=== PATIENT | male | born 1990 | race Caucasian/White ===

== ENCOUNTER 2018-04-29 13:10 | Inpatient (IN) | payer BC ==
[2018-04-29] MEDS ORDERED: oxyCODONE 5 MG Tab PO PRN (13:29)
[2018-04-29] MEDS ORDERED: Temazepam 15 MG Cap PO PRN (13:29)
[2018-04-29] MEDS ORDERED: Acetaminophen 325 MG Tab PO PRN (13:29)
[2018-04-29] MEDS ORDERED: Ondansetron 4 MG Tab.DIS PO PRN (13:29)
[2018-04-29] MEDS ORDERED: Sodium Chloride 0.9% 10 ML Syringe FLUSH PRN (13:29)
[2018-04-29] MEDS ORDERED: Sodium Chloride 0.9% 2.5 ML Syringe FLUSH PRN (13:29)
[2018-04-29] MEDS ORDERED: Docusate Sodium 100 MG Cap PO PRN (13:29)
[2018-04-29] MEDS ORDERED: Sodium Chloride 0.9% 1,000 ML IV SCH (13:30)
--- NOTE | 2018-04-29 13:41 | PCM.HP ---
H&P History of Present Illness - General Date of Service: 04/29/18 Admit Problem/Dx: Admission Diagnosis/Problem Admission Diagnosis/Problem Orbital cellulitis Source of Information: Patient History Limitations: Reports: No Limitations - History of Present Illness Initial Comments - Free Text/Narative: The patient is an otherwise healthy 27-year-old gentleman who had presented to his word processing operator, Dr. Huynh, at [facility] due to infection in his right eye. The patient says that for 4 days he has had what he thought was a stye in his upper eyelid and he had been on medication for this and the cellulitis continued to worsen. The patient has denied any fever or chills. He essentially has no pain at this time. His word processing operator and recommended patient be admitted for broad-spectrum, aggressive antibiotics and further testing to help exclude orbital cellulitis and abscess. The patient also had been on aggressive outpatient oral antibiotics and he has continued to worsen. The patient is otherwise healthy and does not take any medications normally. He has no past medical history. The patient has denied any fever or chills. Onset of Symptoms: Reports: Gradual Duration of Symptoms: Reports: Day(s): Location: Reports: Face Quality: Reports: Ache Improves with: Reports: None Worsens with: Reports: None Associated Symptoms: Reports: No Other Symptoms - Related Data Allergies/Adverse Reactions: Allergies Allergy/AdvReac Type Severity Reaction Status Date / Time No Known Allergies Allergy Verified 04/29/18 13:46 Home Medications: Home Meds . [No Known Home Meds] 04/29/18 [History] Past Medical History - Past Health History Medical/Surgical History: Denies Medical/Surgical History Social & Family History - Tobacco Use Smoking Status *Q: Never Smoker - Alcohol Use Alcohol Use History: No - Living Situation & Occupation Living situation: Reports: Occupation: Employed H&P Review of Systems - Review of Systems: Review Of Systems: See Below General: Reports: No Symptoms HEENT: Reports: Eye Pain, Sinus Congestion, Visual Changes Pulmonary: Reports: No Symptoms Cardiovascular: Reports: No Symptoms Gastrointestinal: Reports: No Symptoms Genitourinary: Reports: No Symptoms Musculoskeletal: Reports: No Symptoms Skin: Reports: No Symptoms Psychiatric: Reports: No Symptoms Neurological: Reports: No Symptoms Hematologic/Lymphatic: Reports: No Symptoms Immunologic: Reports: No Symptoms Exam - Exam Exam: See Below - Exam Quality Assessment: No: Supplemental Oxygen General: Alert, Oriented, Cooperative HEENT: Hearing Intact, Mucosa Moist & [place], Other (The patient's right upper eyelid is inflamed, able to open, conjunctivae inflamed, cornea clear). No: Conjunctiva Clear, EACs Clear Neck: Supple, Trachea Midline Lungs: Clear to Auscultation, Normal Respiratory Effort Cardiovascular: Regular Rate, Regular Rhythm, Normal S1, Normal S2 GI/Abdominal Exam: Normal Bowel Sounds, Soft, Non-Tender, No Distention (Male) Exam: Deferred Rectal (Males) Exam: Deferred Back Exam: Normal Inspection, Full Range of Motion Extremities: Normal Inspection, Normal Range of Motion, No Pedal Edema, Normal Capillary Refill Skin: Warm, Dry, Intact Neurological: Cranial Nerves Intact Neuro Extensive - Mental Status: Alert, Oriented x3 Psychiatric: Alert, Normal Affect, Normal Mood - Problem List (1) Preseptal cellulitis of right upper eyelid SNOMED Code(s): 884605177 ICD Code: L03.213 - PERIORBITAL CELLULITIS Status: Acute Priority: High Current Visit: Yes Problem List Initiated/Reviewed/Updated: Yes Orders Last 24hrs: Active Orders 24 hr Category Date Time Status Patient Status [ADT] Routine ADT 04/29/18 13:30 Ordered Ambulate [RC] PER UNIT ROUTINE Care 04/29/18 13:33 Ordered Oxygen Therapy [RC] PRN Care 04/29/18 13:30 Ordered Up ad Kelli [RC] ASDIRECTED Care 04/29/18 13:29 Ordered VTE/DVT Education [RC] PER UNIT ROUTINE Care 04/29/18 13:30 Ordered Vital Signs [RC] Q4H Care 04/29/18 13:30 Ordered Regular Diet [DIET] Diet 04/29/18 Dinner Ordered Face Neck Orbit w wo Cont [MR] Routine Exams 04/29/18 13:29 Ordered C-REACTIVE PROTEIN [CHEM] Stat Lab 04/29/18 13:29 Ordered CBC WITH AUTO DIFF [HEME] Stat Lab 04/29/18 13:29 Ordered COMPREHENSIVE METABOLIC PN,CMP [CHEM] Stat Lab 04/29/18 13:29 Ordered CULTURE BLOOD [BC] Stat Lab 04/29/18 13:39 Ordered CULTURE BLOOD [BC] Stat Lab 04/29/18 13:39 Ordered SEDIMENTATION RATE AUTO [HEME] Stat Lab 04/29/18 13:29 Ordered Acetaminophen [Tylenol] Med 04/29/18 13:29 Ordered 650 mg PO Q4H PRN Docusate Sodium [Colace] Med 04/29/18 13:29 Ordered 100 mg PO BID PRN Ondansetron [Zofran ODT] Med 04/29/18 13:29 Ordered 4 mg PO Q6H PRN Sodium Chloride 0.9% @ 125 MLS/HR (1000ml) Med 04/29/18 13:30 Ordered Sodium Chloride 0.9% [Normal Saline] 1,000 ml IV ASDIRECTED Sodium Chloride 0.9% [Saline Flush] Med 04/29/18 13:29 Ordered 10 ml FLUSH ASDIRECTED PRN Sodium Chloride 0.9% [Saline Flush] Med 04/29/18 13:29 Ordered 2.5 ml FLUSH ASDIRECTED PRN Temazepam [Restoril] Med 04/29/18 13:29 Ordered 15 mg PO BEDTIME PRN cefTRIAXone [Rocephin] 1 gm Med 04/29/18 13:30 Ordered Sodium Chloride 0.9% [Normal Saline] 50 ml IV Q12H oxyCODONE Med 04/29/18 13:29 Ordered 5 mg PO Q4H PRN Blood Culture x2 Reflex Set [OM.PC] Stat Oth 04/29/18 13:29 Ordered Peripheral IV Insertion Adult [OM.PC] Routine Oth 04/29/18 13:29 Ordered Resuscitation Status Routine Resus Stat 04/29/18 13:29 Ordered Assessment/Plan Comment:: The patient is an otherwise healthy 27-year-old gentleman who was referred from his word processing operator, Dr. Huynh, and was directly admitted as an inpatient. The patient will be kept on aggressive IV antibiotics consisting of vancomycin, pharmacy to dose, Rocephin as recommended with 1 g IV every 12 hours. Blood cultures have also been ordered. I've also ordered an MRI of the patient's face and orbits with and without contrast to exclude intraocular involvement. I have advised the patient as well as Dr. Huynh that if there had been any concern for interocular abscess and would consider the patient to be appropriate for transfer to tertiary care center. The patient also will be kept on IV normal saline at 125 mL per hour and repeat laboratory testings have been ordered. I' ve ordered a CBC, CMP along with a sedimentation rate and a CRP. The patient has been encouraged to ambulate. He is in otherwise good health and ambulation should be appropriate for DVT prophylaxis.
[2018-04-29] MEDS: cefTRIAXone 1 GM in Sodium Chloride 0.9% 50 ML IV SCH (14:32)
[2018-04-29 14:57] LABS: CHLORIDE,CL 103 mmol/L (98-107); SODIUM,NA 141 mmol/L (136-148)
[2018-04-29] MEDS ORDERED: Gadobenate Dimeglumine 529 MG/ML 20 ML SDV IVPUSH STA (19:08)
--- NOTE | 2018-04-29 20:49 | MR ---
Indication: Orbital cellulitis. Technique: Noncontrast sagittal T1, axial FLAIR, T2, diffusion, post contrast T1 weighted sequences are provided. Supplemental high resolution axial/coronal STIR and T1 post contrast Fat saturated images through the orbits are provided. No comparisons. Findings: The ventricles, sulci and gyri are normal size, shape and contour for age. The midline structures are centrally located with no evidence of shift. There are no suspicious intra or extra-axial fluid collections. No region of restricted diffusion or suspicious regions of abnormal parenchymal enhancement. Expected flow voids in the cavernous carotids and basilar artery. The globes bilaterally are within normal limits. No suspicious abnormal signal within the visualized optic nerves. Infundibulum and optic chiasm are midline and within normal limits. There is fat stranding and enhancement in the preseptal right orbital soft tissues as well as involvement of the lateral right lacrimal gland. Similar changes extend along the right face. No focal peripherally enhancing fluid collections are demonstrated. No convincing evidence of suspicious enhancement seen within the postseptal soft tissues the right orbit. No convincing evidence of suspicious masses within the intraconal space. Impression: 1. Findings compatible with right preseptal orbital cellulitis with involvement of the right lacrimal gland and soft tissues of the visualized right upper face. Dictated by Raymundo Vila MD @ Apr 30 2018 9:21AM Signed by Dr. Raymundo Vila @ Apr 30 2018 9:25AM
[2018-04-30] MEDS: cefTRIAXone 1 GM in Sodium Chloride 0.9% 50 ML IV SCH ×2 (01:47→13:45)
[2018-04-30 06:17] LABS: CHLORIDE,CL 106 mmol/L (98-107); SODIUM,NA 142 mmol/L (136-148)
--- NOTE | 2018-04-30 07:49 | PCM.PN ---
- General Info Date of Service: 04/30/18 Admission Dx/Problem (Free Text): Admission Diagnosis/Problem Admission Diagnosis/Problem Orbital cellulitis Subjective Update: The patient is an otherwise healthy 27-year-old gentleman who had been admitted directly from internal medicine physician office. This is secondary to preseptal orbital cellulitis and the patient had an MRI with contrast yesterday. Patient today says that he is doing much better. His been able to open his eye. His vision has improved. No fever and chills overnight. Overall, no complaints. Functional Status: Reports: Pain Controlled, Tolerating Diet - Review of Systems General: Reports: No Symptoms HEENT: Reports: Eye Pain Pulmonary: Reports: No Symptoms Cardiovascular: Reports: No Symptoms Gastrointestinal: Reports: No Symptoms Genitourinary: Reports: No Symptoms Musculoskeletal: Reports: No Symptoms Skin: Reports: No Symptoms Neurological: Reports: No Symptoms Psychiatric: Reports: No Symptoms - Patient Data Vitals - Most Recent: Last Vital Signs Temp 36.6 C 04/30/18 04:00 Pulse 85 04/30/18 04:00 Resp 16 04/30/18 04:00 BP 121/55 L 04/30/18 04:00 Pulse Ox 95 04/30/18 04:00 Weight - Most Recent: 76.476 kg I&O - Last 24 Hours: Intake & Output 04/29/18 04/30/18 04/30/18 22:59 06:59 14:59 Intake Total 100 500 Output Total 0 350 Balance 100 150 Lab Results Last 24 Hours: Laboratory Results - last 24 hr 04/29/18 04/29/18 04/30/18 Range/Units 13:52 13:52 05:37 WBC 10.59 9.06 (4.0-11.0) K/uL RBC 5.23 5.01 (4.50-5.90) M/uL Hgb 16.3 15.3 (13.0-17.0) g/dL Hct 45.6 44.3 (38.0-50.0) % MCV 87.2 88.4 (80.0-98.0) fL MCH 31.2 30.5 (27.0-32.0) pg MCHC 35.7 34.5 (31.0-37.0) g/dL RDW Std Deviation 40.0 40.0 (28.0-62.0) fl RDW Coeff of [place] 13 13 (11.0-15.0) % Plt Count 230 215 (150-400) K/uL MPV 10.00 10.00 (7.40-12.00) fL Neut % (Auto) 75.8 64.5 (48.0-80.0) % Lymph % (Auto) 14.9 L 23.5 (16.0-40.0) % [place] % (Auto) 8.6 10.4 (0.0-15.0) % Eos % (Auto) 0.6 1.4 (0.0-7.0) % Baso % (Auto) 0.1 0.2 (0.0-1.5) % Neut # (Auto) 8.0 H 5.8 H (1.4-5.7) K/uL Lymph # (Auto) 1.6 2.1 (0.6-2.4) K/uL [place] # (Auto) 0.9 H 0.9 H (0.0-0.8) K/uL Eos # (Auto) 0.1 0.1 (0.0-0.7) K/uL Baso # (Auto) 0.0 0.0 (0.0-0.1) K/uL Nucleated RBC % 0.0 0.0 /100WBC Nucleated RBCs # 0 0 K/uL ESR 6 (0-14) mm/hr Sodium 141 (136-148) mmol/L Potassium 3.9 (3.5-5.1) mmol/L Chloride 103 (98-107) mmol/L Carbon Dioxide 26.7 (21.0-32.0) mmol/L BUN 16 (7.0-18.0) mg/dL Creatinine 1.1 (0.8-1.3) mg/dL Est Cr Clr Drug Dosing 105.53 mL/min Estimated GFR (MDRD) > 60.0 ml/min Glucose 86 (74-106) mg/dL Calcium 9.5 (8.5-10.1) mg/dL Total Bilirubin 0.8 (0.2-1.0) mg/dL AST 17 (15-37) IU/L ALT 18 (14-63) IU/L Alkaline Phosphatase 118 H (46-116) U/L C-Reactive Protein 3.10 H (0.00-0.90) mg/dL Total Protein 8.2 (6.4-8.2) g/dL Albumin 4.0 (3.4-5.0) g/dL Globulin 4.2 H (2.6-4.0) g/dL Albumin/Globulin Ratio 1.0 (0.9-1.6) 04/30/18 Range/Units 05:37 WBC (4.0-11.0) K/uL RBC (4.50-5.90) M/uL Hgb (13.0-17.0) g/dL Hct (38.0-50.0) % MCV (80.0-98.0) fL MCH (27.0-32.0) pg MCHC (31.0-37.0) g/dL RDW Std Deviation (28.0-62.0) fl RDW Coeff of [place] (11.0-15.0) % Plt Count (150-400) K/uL MPV (7.40-12.00) fL Neut % (Auto) (48.0-80.0) % Lymph % (Auto) (16.0-40.0) % [place] % (Auto) (0.0-15.0) % Eos % (Auto) (0.0-7.0) % Baso % (Auto) (0.0-1.5) % Neut # (Auto) (1.4-5.7) K/uL Lymph # (Auto) (0.6-2.4) K/uL [place] # (Auto) (0.0-0.8) K/uL Eos # (Auto) (0.0-0.7) K/uL Baso # (Auto) (0.0-0.1) K/uL Nucleated RBC % /100WBC Nucleated RBCs # K/uL ESR (0-14) mm/hr Sodium 142 (136-148) mmol/L Potassium 4.3 (3.5-5.1) mmol/L Chloride 106 (98-107) mmol/L Carbon Dioxide 29.6 (21.0-32.0) mmol/L BUN 19 H (7.0-18.0) mg/dL Creatinine 1.0 (0.8-1.3) mg/dL Est Cr Clr Drug Dosing 116.09 mL/min Estimated GFR (MDRD) > 60.0 ml/min Glucose 88 (74-106) mg/dL Calcium 9.4 (8.5-10.1) mg/dL Total Bilirubin (0.2-1.0) mg/dL AST (15-37) IU/L ALT (14-63) IU/L Alkaline Phosphatase (46-116) U/L C-Reactive Protein (0.00-0.90) mg/dL Total Protein (6.4-8.2) g/dL Albumin (3.4-5.0) g/dL Globulin (2.6-4.0) g/dL Albumin/Globulin Ratio (0.9-1.6) Med Orders - Current: Current Medications Acetaminophen (Tylenol) 650 mg PO Q4H PRN PRN Reason: Pain (Mild 1-3)/fever Docusate Sodium (Colace) 100 mg PO BID PRN PRN Reason: Constipation Ceftriaxone Sodium 1 gm/ (Sodium Chloride) 50 mls @ 100 mls/hr IV Q12H [facility] Last Admin: 04/30/18 01:47 Dose: 100 mls/hr Vancomycin HCl 1.25 gm/ Sodium (Chloride) 250 mls @ 166.667 mls/hr IV Q8H [facility] Last Admin: 04/30/18 00:06 Dose: 166.667 mls/hr Ondansetron HCl (Zofran Odt) 4 mg PO Q6H PRN PRN Reason: nausea, able to take PO Oxycodone HCl (Oxycodone) 5 mg PO Q4H PRN PRN Reason: Pain (moderate 4-6) Sodium Chloride (Saline Flush) 10 ml FLUSH ASDIRECTED PRN PRN Reason: Keep Vein Open Sodium Chloride (Saline Flush) 2.5 ml FLUSH ASDIRECTED PRN PRN Reason: Keep Vein Open Temazepam (Restoril) 15 mg PO BEDTIME PRN PRN Reason: Sleep Discontinued Medications Gadobenate Dimeglumine (Multihance) 20 ml IVPUSH ONETIME STA Stop: 04/29/18 19:09 Last Admin: 04/29/18 19:09 Dose: 15 ml Sodium Chloride (Normal Saline) 1,000 mls @ 125 mls/hr IV ASDIRECTED [facility] Last Admin: 04/29/18 14:32 Dose: 125 mls/hr Vancomycin HCl (Pharmacy To Dose - Vancomycin) 1 dose .XX ONETIME ONE Stop: 04/29/18 15:49 Last Admin: 04/29/18 16:34 Dose: Not Given - Exam Quality Assessment: No: Supplemental Oxygen General: Alert, Oriented, Cooperative, No Acute Distress HEENT: Other (Erythema right upper lid less today with serous drainage). No: Scleral Icterus Neck: Supple, Trachea Midline Lungs: Clear to Auscultation, Normal Respiratory Effort Cardiovascular: Regular Rate, Regular Rhythm GI/Abdominal Exam: Normal Bowel Sounds, Soft, Non-Tender, No Distention (Male) Exam: Deferred Back Exam: Normal Inspection, Full Range of Motion Extremities: Normal Inspection, Normal Range of Motion, Non-Tender, No Pedal Edema Skin: Warm, Dry, Intact Wound/Incisions: Healing Well Neurological: No New Focal Deficit Psy/Mental Status: Alert, Normal Affect, Normal Mood - Problem List & Annotations (1) Preseptal cellulitis of right upper eyelid SNOMED Code(s): 678781830 Code(s): L03.213 - PERIORBITAL CELLULITIS Status: Acute Priority: High Current Visit: Yes Annotation/Comment:: Improved - Problem List Review Problem List Initiated/Reviewed/Updated: Yes - My Orders Last 24 Hours: My Active Orders 04/29/18 13:29 Up ad Kelli [RC] ASDIRECTED Acetaminophen [Tylenol] 650 mg PO Q4H PRN Docusate Sodium [Colace] 100 mg PO BID PRN Ondansetron [Zofran ODT] 4 mg PO Q6H PRN Sodium Chloride 0.9% [Saline Flush] 10 ml FLUSH ASDIRECTED PRN Sodium Chloride 0.9% [Saline Flush] 2.5 ml FLUSH ASDIRECTED PRN Temazepam [Restoril] 15 mg PO BEDTIME PRN oxyCODONE 5 mg PO Q4H PRN Blood Culture x2 Reflex Set [OM.PC] Stat Peripheral IV Insertion Adult [OM.PC] Routine Resuscitation Status Routine 04/29/18 13:30 Patient Status [ADT] Routine Oxygen Therapy [RC] PRN VTE/DVT Education [RC] PER UNIT ROUTINE Vital Signs [RC] Q4H cefTRIAXone [Rocephin] 1 gm Sodium Chloride 0.9% [Normal Saline] 50 ml IV Q12H 04/29/18 13:33 Ambulate [RC] PER UNIT ROUTINE 04/29/18 13:52 CULTURE BLOOD [BC] Stat 04/29/18 14:03 CULTURE BLOOD [BC] Stat 04/29/18 16:30 Vancomycin 1.25 gm Sodium Chloride 0.9% [Normal Saline] 250 ml IV Q8H 04/29/18 Dinner Regular Diet [DIET] 04/30/18 15:30 VANCOMYCIN TROUGH [CHEM] Routine - Plan Plan:: The patient is an otherwise healthy 27-year-old gentleman who was referred from his internal medicine physician, Dr. Huynh, and was directly admitted as an inpatient. The patient will be kept on aggressive IV antibiotics consisting of vancomycin, pharmacy to dose, Rocephin as recommended with 1 g IV every 12 hours. Blood cultures have also been ordered. I've also ordered an MRI of the patient's face and orbits with and without contrast to exclude intraocular involvement. I have advised the patient as well as Dr. Huynh that if there had been any concern for interocular abscess and would consider the patient to be appropriate for transfer to tertiary care center. The patient also will be kept on IV normal saline at 125 mL per hour and repeat laboratory testings have been ordered. I' ve ordered a CBC, CMP along with a sedimentation rate and a CRP. The patient has been encouraged to ambulate. He is in otherwise good health and ambulation should be appropriate for DVT prophylaxis. The patient is a healthy 27-year-old gentleman was admitted directly from his internal medicine physician office. He has had some significant improvement in his orbital cellulitis. We'll continue with the current antibiotics consisting of vancomycin and Rocephin for now. Dr. Huynh who is his internal medicine physician that referred the patient stop by for a courtesy visit and has recommended that the patient follow-up with him upon discharge. The patient should be appropriate for discharge in 1 day. The patient will be kept on his regular diet as tolerated. I've also ordered repeat laboratory studies in the morning. The patient has been encouraged to ambulate.
[2018-05-01] MEDS: cefTRIAXone 1 GM in Sodium Chloride 0.9% 50 ML IV SCH (01:42)
--- NOTE | 2018-05-01 06:31 | PCM.DCSUM1 ---
Discharge Summary - Hospital Course Free Text/Narrative:: The patient was admitted from transcription office secondary to preseptal cellulitis of his right orbit. Diagnosis: Stroke: No - Discharge Data Discharge Date: 05/01/18 Discharge Disposition: Home, Self-Care 01 Condition: Good - Discharge Diagnosis/Problem(s) (1) Preseptal cellulitis of right upper eyelid SNOMED Code(s): 802485190 ICD Code: L03.213 - PERIORBITAL CELLULITIS Status: Acute Priority: High Current Visit: Yes Problem Details: Improved - Patient Summary/Data Hospital Course: The patient is an otherwise healthy 27-year-old gentleman who was referred from his transcription, Dr. Huynh, and was directly admitted as an inpatient. The patient will be kept on aggressive IV antibiotics consisting of vancomycin, pharmacy to dose, Rocephin as recommended with 1 g IV every 12 hours. Blood cultures have also been ordered. I've also ordered an MRI of the patient's face and orbits with and without contrast to exclude intraocular involvement. I have advised the patient as well as Dr. Huynh that if there had been any concern for interocular abscess and would consider the patient to be appropriate for transfer to tertiary care center. The patient also will be kept on IV normal saline at 125 mL per hour and repeat laboratory testings have been ordered. I' ve ordered a CBC, CMP along with a sedimentation rate and a CRP. The patient has been encouraged to ambulate. He is in otherwise good health and ambulation should be appropriate for DVT prophylaxis. We'll continue with the current antibiotics consisting of vancomycin and Rocephin for now. Dr. Huynh who is his transcription that referred the patient stop by for a courtesy visit and has recommended that the patient follow-up with him upon discharge. The patient should be appropriate for discharge in 1 day. The patient will be kept on his regular diet as tolerated. I've also ordered repeat laboratory studies in the morning. The patient has been encouraged to ambulate. The patient had continued to improve with the IV antibiotics and by day of discharge he felt OK to go home. The patient's physical examination shows markedly improved right eye and he is able to open his eye and says his vision is improved. Dr. Huynh has wanted to see the patient in follow-up in his office for incision and drainage of the eyelid abscess. The patient has been recommended to contact transcription office upon discharge. The patient will be discharged home on cefdinir 300 mg by mouth twice a day. The patient is also have a regular diet as tolerated. He has been recommended to return to hospitalization if he experiences any worsening pain, loss of vision or fever or chills. The patient is to have a regular diet as tolerated. He is also to have activity as tolerated. The patient has been discharged from acute hospitalization with the recommendations listed above. - Patient Instructions Diet: Regular Diet as Tolerated Activity: As Tolerated Notify Provider of: Fever, Increased Pain, Swelling and Redness - Discharge Plan *PRESCRIPTION DRUG MONITORING PROGRAM REVIEWED*: No *COPY OF PRESCRIPTION DRUG MONITORING REPORT IN PATIENT SAMIR: No Prescriptions/Med Rec: Cefdinir [Omnicef] 300 mg PO BID #10 cap Home Medications: Home Meds Cefdinir [Omnicef] 300 mg PO BID #10 cap 05/01/18 [Rx] Oxygen Therapy Mode: Room Air Patient Handouts: Cefdinir capsules, Preseptal Cellulitis, Adult Referrals: Giuliano Huynh [Primary Care Provider] - (Please call on Wednesday and schedule a follow-up appointment.) - Discharge Summary/Plan Comment DC Time >30 min.: Yes - General Info Date of Service: 05/01/18 Admission Dx/Problem (Free Text: Better today, no pain Functional Status: Reports: Pain Controlled, Tolerating Diet - Review of Systems General: Reports: No Symptoms HEENT: Reports: Visual Changes (Improved vision). Denies: Eye Pain Pulmonary: Reports: No Symptoms Cardiovascular: Reports: No Symptoms Gastrointestinal: Reports: No Symptoms Genitourinary: Reports: No Symptoms Musculoskeletal: Reports: No Symptoms Skin: Reports: No Symptoms Neurological: Reports: No Symptoms Psychiatric: Reports: No Symptoms - Patient Data Vitals - Most Recent: Last Vital Signs Temp 36.4 C 05/01/18 04:50 Pulse 60 05/01/18 04:50 Resp 16 05/01/18 04:50 BP 104/55 L 05/01/18 04:50 Pulse Ox 98 05/01/18 04:50 Weight - Most Recent: 76.476 kg I&O - Last 24 hours: Intake & Output 04/30/18 04/30/18 05/01/18 14:59 22:59 06:59 Intake Total 300 910 500 Balance 300 910 500 Lab Results - Last 24 hrs: Laboratory Results - last 24 hr 04/30/18 Range/Units 15:34 Vancomycin Trough 10.6 H (5.0-10.0) ug/mL URSULA Results - Last 24 hrs: Microbiology 04/29/18 14:03 Aerobic Blood Culture - Preliminary Blood - Venous - Lab Draw NO GROWTH AFTER 1 DAY Anaerobic Blood Culture - Preliminary NO GROWTH AFTER 1 DAY 04/29/18 13:52 Aerobic Blood Culture - Preliminary Blood - Venous NO GROWTH AFTER 1 DAY Anaerobic Blood Culture - Preliminary NO GROWTH AFTER 1 DAY Med Orders - Current: Current Medications Acetaminophen (Tylenol) 650 mg PO Q4H PRN PRN Reason: Pain (Mild 1-3)/fever Docusate Sodium (Colace) 100 mg PO BID PRN PRN Reason: Constipation Ceftriaxone Sodium 1 gm/ (Sodium Chloride) 50 mls @ 100 mls/hr IV Q12H [facility] Last Admin: 05/01/18 01:42 Dose: 100 mls/hr Vancomycin HCl 1.25 gm/ Sodium (Chloride) 250 mls @ 166.667 mls/hr IV Q8H [facility] Last Admin: 04/30/18 23:46 Dose: 166.667 mls/hr Ondansetron HCl (Zofran Odt) 4 mg PO Q6H PRN PRN Reason: nausea, able to take PO Oxycodone HCl (Oxycodone) 5 mg PO Q4H PRN PRN Reason: Pain (moderate 4-6) Sodium Chloride (Saline Flush) 10 ml FLUSH ASDIRECTED PRN PRN Reason: Keep Vein Open Sodium Chloride (Saline Flush) 2.5 ml FLUSH ASDIRECTED PRN PRN Reason: Keep Vein Open Temazepam (Restoril) 15 mg PO BEDTIME PRN PRN Reason: Sleep Discontinued Medications Gadobenate Dimeglumine (Multihance) 20 ml IVPUSH ONETIME STA Stop: 04/29/18 19:09 Last Admin: 04/29/18 19:09 Dose: 15 ml Sodium Chloride (Normal Saline) 1,000 mls @ 125 mls/hr IV ASDIRECTED [facility] Last Admin: 04/29/18 14:32 Dose: 125 mls/hr Vancomycin HCl (Pharmacy To Dose - Vancomycin) 1 dose .XX ONETIME ONE Stop: 04/29/18 15:49 Last Admin: 04/29/18 16:34 Dose: Not Given - Exam Quality Assessment: Denies: Supplemental Oxygen General: Reports: Alert, Oriented, Cooperative, No Acute Distress HEENT: Reports: Pupils Equal, Pupils Reactive, EOMI, Other (Significantly less edema right upper eyelid, some crusting of eyelashes on right) Neck: Reports: Supple, Trachea Midline Lungs: Reports: Clear to Auscultation, Normal Respiratory Effort Cardiovascular: Reports: Regular Rate, Regular Rhythm GI/Abdominal Exam: Normal Bowel Sounds, Soft, Non-Tender, No Distention (Male) Exam: Deferred Rectal (Males) Exam: Deferred Back Exam: Reports: Normal Inspection, Full Range of Motion Extremities: Normal Inspection, Normal Range of Motion, No Pedal Edema Skin: Reports: Warm, Dry, Intact Neurological: Reports: No New Focal Deficit, Normal Gait, Normal Speech Psy/Mental Status: Reports: Alert, Normal Affect, Normal Mood
[2018-05-01] MEDS ORDERED: Cefdinir 300 MG Cap PO ONE ×2 (08:00→08:45)
== END 2018-05-01 08:45 | disposition home or self-care (01) | DRG 82 ==
LOC: MW.MS 13:10
PROVIDERS: ADMIT Internal Medicine; ATTEND Internal Medicine
DX: H05.011 Cellulitis of right orbit (principal); H00.031 Abscess of right upper eyelid
CPT/HCPCS: 36415; 70543; 70543-26; 80048; 80053; 80202; 85025; 85652; 86140; 87040; A9270-GY; A9577; J0696; J3370; J7040; J7050